=== PATIENT | female | born 1965 | race Caucasian/White ===

== ENCOUNTER 2016-04-29 09:08 | Emergency (ER) | payer BC ==
[~2016-04-29] VITALS: Ht 160 cm; Wt 62.7 kg
[~2016-04-29 09:08] MED LIST: FERR1TAB23 PO; MISCTAB PO; MULT-506 PO
[2016-04-29 09:16] VITALS: TEMP 36.6; Ht 160 cm; Wt 62.7 kg
[2016-04-29] MEDS ORDERED: PROMETHAZINE HCL INJ 25 MG/ML 1 ML VIAL IM STA (09:34)
[2016-04-29] MEDS ORDERED: HYDROmorphone INJ 1 MG/ML SYR IM STA (09:34)
[2016-04-29] MEDS ORDERED: KETOROLAC TROMETHAMINE 60 MG/2 ML VIAL IM STA (09:34)
[2016-04-29 10:45] VITALS: BP 101/78; PULSE 76; O2SAT 98
--- NOTE | 2016-04-30 12:26 | EMERGENCY ROOM VISIT NOTE ---
ED Visit Note First contact with patient: 09:21 CHIEF COMPLAINT: Migraine headache. HISTORY OF PRESENT ILLNESS: Ms. Canales is a 51 year-old white female who ambulates into the ED complaining of a migraine headache. She reports a gradual onset of a severe migraine headache that started approximately 28 hours ago. The pain is constant and it is slowly increasing in severity. This is not the worst headache of the life and is similar to previous migraines. Currently she describes the headache as a pressure sensation/pain in the left temporoparietal area. He/She rates the pain a 7/10. The pain is nonradiating. She reports taking her prescribed naproxen without relief of pain. She reports bright lights and loud sounds worsen her headache. She has not identified any alleviating factors related to the discomfort. She denies any associated fevers, chills, sweats, skin eruptions, skin color changes, recent head or dental trauma, visual changes, hearing changes, difficulty speaking, difficulty swallowing, difficulty ambulating/coordinating body movements, upper respiratory tract symptoms, neck pain/stiffness, shortness of breath, abdominal pain, extremity weakness/numbness/tingling. REVIEW OF SYSTEMS: As noted above in History of Present Illness; all body systems were reviewed with the patient and found to be negative unless noted above otherwise PAST MEDICAL HISTORY: (1) Depressive Disorder Nec (2) Headache (3) Migraine Surgical Problems: (1) History of - tubal ligation (2) Partial hysterectomy (3) Sinus Plasty CURRENT MEDICATIONS: Medications Dose Route/Sig Max Daily Dose Days Date Category Buspirone Hcl 5 Mg Tab 1 Tab PO TID 30 04/29/16 Reported Naprosyn Ds (Naproxen Sodium) 550 Mg Tab 550 Mg PO BID PRN 11/05/15 Reported Depakote Er (Divalproex Sodium) 250 Mg Tab 250 Mg PO HS 30 11/05/15 Reported Tylenol (Acetaminophen) 500 Mg Tab 1,000 Mg PO DIRECTED 08/14/15 Reported Sertraline HCl 100 Mg Tab 150 Mg PO DAILY 04/05/14 Reported ALLERGIES TO MEDICATIONS: Patient denies. SOCIAL HISTORY: Patient is currently employed; she feels safe in her home environment; she denies tobacco and alcohol use. PHYSICAL EXAM: Vital Signs: Date Time Temp Pulse Resp B/P Pulse Ox O2 Delivery O2 Flow Rate FiO2 04/29/16 10:45 76 16 101/78 98 04/29/16 09:16 36.6 70 18 118/80 100 Room Air GENERAL: 51 year-old white female in moderate distress due to pain, afebrile and hemodynamically stable. NEUROLOGIC: Awake, alert and oriented to person place and time. Answering questions appropriately and following commands. Cranial nerves II-XII grossly intact. Good short-term and long-term recall. No focal neurologic deficits noted. SKIN: Warm, dry and pink. No rashes, lesions or soft tissue trauma noted. HEENT: Normocephalic, atraumatic. Pupils equal, round and reactive. Extraocular movements intact and there is no nystagmus. Sclera anicteric. Ears , nose and oropharynx clear. The patient is photophobic, precluding funduscopic examination. NECK: Soft and supple. No tenderness through the central cervical region or cervical musculature. Negative Kernigs and negative Brudzinski signs. No lymphadenopathy, jugular venous distention, or bruits noted. THORAX: Lungs clear to auscultation and equal bilaterally with no wheezing, crackles, rhonchi or stridor and equal chest wall movements. HEART: Regular rate and rhythm with no murmurs, rubs or gallops. ABDOMEN: Soft and nontender with bowel sounds present in all quadrants; no rigidity, rebound tenderness, organomegaly or guarding. MUSCULOSKELETAL: Full range of motion of all joints without any significant discomfort and the gait is normal. ED COURSE: Patient is assessed with history and physical examination. Patient was given 2 mg of the Dilaudid IM, 60 mg of Toradol IM and 25 mg of Phenergan IM for her pain and nausea. Patient was reassessed. Patient was educated about her condition and instructed on her treatment plan; she verbalized understanding and agreement with this plan. CLINICAL IMPRESSION: Migraine headache. DECISION MAKIN-year-old female who presents for evaluation of headache. She is afebrile, well appearing, and hemodynamically stable. She has no signs of a sinus, dental , or ear infection and no evidence of meningismus. She is neurologically intact. I do not suspect a headache to be secondary to a subarachnoid hemorrhage, meningitis, encephalitis, or intracranial mass lesion. DISPOSITION: Patient was discharged to home in stable condition accompanied by her ; prior to departure she was reassessed and subjectively reported she was feeling better and rated her discomfort 3.5/10. DISCHARGE INSTRUCTIONS: Rest at home, in a quiet darkened room and allow the medication to work for the pain. Continue to follow up current treatment plan prescribed by your physician for your migraine headaches. See your own doctor in follow-up this week for continued care and treatment. Return to the emergency department as needed for worsening/uncontrolled pain, any abnormal neurological symptoms, fevers or any new/concerning symptoms.
[2016-10-02] MEDS ORDERED: ZLF/100 PO (07:14)
[2016-10-02] MEDS ORDERED: NAPR550T PO (09:14)
[2016-10-02] MEDS ORDERED: DIVA250T PO (09:14)
[2016-10-02] MEDS ORDERED: BUSP5TAB59 PO (09:46)
[2016-10-02] MEDS ORDERED: ACET-1256 PO (12:45)
== END 2016-04-29 10:55 | disposition home or self-care (01) ==
LOC: C.EDB 09:09
DX: G43.909 Migraine, unspecified, not intractable, without status migrainosus (principal); F32.9 Major depressive disorder, single episode, unspecified; Z79.899 Other long term (current) drug therapy

== ENCOUNTER 2016-05-19 09:53 | Emergency (ER) | payer BC ==
[~2016-05-19] VITALS: Ht 160 cm; Wt 63.1 kg
[2016-05-19 10:01] VITALS: TEMP 36.9; Ht 160 cm; Wt 63.1 kg
[2016-05-19] MEDS ORDERED: PROMETHAZINE HCL INJ 25 MG/ML 1 ML VIAL IM STA (10:49)
[2016-05-19] MEDS ORDERED: KETOROLAC TROMETHAMINE 60 MG/2 ML VIAL IM STA (10:49)
[2016-05-19] MEDS ORDERED: AMOX500C3 PO (10:55)
[2016-05-19] MEDS ORDERED: HYDROmorphone INJ 1 MG/ML SYR IM ONE (11:00)
[2016-05-19 11:26] VITALS: BP 124/88; PULSE 76; O2SAT 98
--- NOTE | 2016-05-20 07:44 | EMERGENCY ROOM VISIT NOTE ---
ED Visit Note First contact with patient: 10:29 CHIEF COMPLAINT: Migraine headache. Sinus congestion. HISTORY OF PRESENT ILLNESS: This 51-year-old white female complains of gradual onset of a severe generalized headache that started 2 days ago. She also complains of sinus congestion that she has had for the last 8 days. She states it is getting worse. She feels a triggered her migraine. There has been associated nausea but no vomiting. The patient denies fever or chills recently. No respiratory symptoms. There is no weakness or numbness of the extremities. There is no difficulty with speech, hearing, or vision. No trauma to the head and no neck pain. The pain is severe, constant, and has been slowly increasing in severity. She is photophobic but not phonophobic. This is not the worst headache of her life and is similar to previous migraines. Pain is 8/10. Patient is well known to the ED for frequent migraine headaches. She has not seen her PCP. REVIEW OF SYSTEMS: Ears: No pain or change in hearing. Neck: No pain, stiffness, or swelling. Neurological: No changes in mental status, vertigo, focal weakness, numbness. Cardiac: No chest pain, diaphoresis, dyspnea on exertion, orthopnea, pedal edema, or palpitations. Respiratory: No cough, change in sputum, wheezes, hemoptysis, shortness of breath, or stridor. Gastrointestinal: No abdominal pain, blood in stools, diarrhea, or loss of appetite. Skin: No rash, new lesions, or masses. General: No fever or chills , fatigue, loss of appetite, or significant recent weight gain or loss. PMH: Supplemental sheet was reviewed. Previous surgeries: Sinus surgery, hysterectomy, and tubal ligation Medical history: Significant for migraine headaches, depression Family history: Noncontributory SOCIAL HISTORY: Employed. No tobacco use Allergies: NKDA Current Medications: Reviewed and filed in patient's chart PHYSICAL EXAM: Vital Signs: Afebrile. Reviewed and filed in patient's chart MENTAL STATUS: Alert, oriented, and coherent. In obvious discomfort from the headache. No acute distress. Skin:Warm and dry with good turgor. No rashes or lesions. No ecchymosis or erythema. The patient is not diaphoretic. No abrasions. HEENT:Normocephalic atraumatic. Eyes PERRLA, EOMI. No conjunctiva or scleral injection. She has are light sensitive. Ears TMs intact bilaterally with good light reflexes. No erythema or bulging. No hemotympanum. Canals are patent. Nares patent bilaterally with bilateral turbinate enlargement. White nasal drainage. Oropharynx without erythema or exudate. Uvula midline, oral mucosa moist. No lesions present. Visible postnasal drip. Lymphatics are palpated without anterior or posterior chain enlargement or tenderness. NECK: Supple, nontender, no nuchal rigidity. HEART : Regular rhythm and normal rate without murmurs, ectopy, gallops, or rubs. Peripheral pulses are 2+. LUNGS: Lungs are clear to auscultation. No crackles rhonchi or wheezing. Good air movement. The patient is able to take a deep breath. Abdomen: Bowel sounds present x4. Soft, nontender to palpation. No organomegaly. No masses noted. NEUROLOGIC: The patient moves all extremities well and the gait is normal. Cranial nerves 2 through 12 are intact. Gross sensation is intact across the upper and lower extremities via soft touch. EMERGENCY DEPARTMENT COURSE: The patient was educated regarding today's findings. Conservative care measures were discussed. The patient was given Dilaudid 1 mg IM, Phenergan 25 mg IM, and Toradol 60 mg IM for the headache with some relief of the pain and nausea. This is her usual regimen. I do not suspect intracranial bleed, encephalitis, or meningitis. DIAGNOSIS: Migraine headache. Acute sinusitis DISCHARGE INSTRUCTIONS & TREATMENT: Patient was given Dilaudid, Phenergan, and Toradol for nausea and pain control. Rest at home in a quiet, dark room. Driving precautions were reviewed. Take her usual medication for any breakthrough pain. She was also prescribed amoxicillin 500 mg 3 times a day 10 days for sinus infection. She may use a decongestant such as Mucinex D. Rest as needed. See your own doctor in follow-up. Maintain hydration. Return to the ER for any acute changes in mental status. Migraine headache handout was provided. Problem List Medical Problems: (1) Depressive Disorder Nec Status: Chronic (2) Headache Status: Resolved (3) Migraine Status: Chronic Surgical Problems: (1) History of - tubal ligation Status: Resolved (2) Partial hysterectomy Status: Resolved (3) Sinus Plasty Status: Resolved Current/Historical Medications Scheduled Acetaminophen (Tylenol), 1,000 MG PO DIRECTED Amoxicillin (Amoxil), 500 MG PO TID Buspirone Hcl (Buspirone Hcl), 1 TAB PO TID Divalproex Sodium (Depakote Er), 250 MG PO HS Sertraline HCl (Sertraline HCl), 200 MG PO DAILY Scheduled PRN Naproxen Sodium (Naprosyn Ds), 550 MG PO BID PRN for Pain Allergies Coded Allergies: No Known Allergies (Unverified , 05/19/16) Vital Signs Date Time Temp Pulse Resp B/P Pulse Ox O2 Delivery O2 Flow Rate FiO2 05/19/16 11:26 76 18 124/88 98 05/19/16 10:01 36.9 77 18 123/86 97 Room Air Medications Administered Medications (Trade) Dose Ordered Sig/Jasmyn Route Start Time Stop Time Status Last Admin Dose Admin Hydromorphone HCl (Dilaudid Inj) 1 mg NOW ONCE IM 05/19/16 11:00 05/19/16 11:01 DC 05/19/16 11:03 1 MG Promethazine HCl (Phenergan Inj) 25 mg NOW STAT IM 05/19/16 10:49 05/19/16 10:51 DC 05/19/16 10:49 25 MG Ketorolac Tromethamine (Toradol Inj) 60 mg NOW STAT IM 05/19/16 10:49 05/19/16 10:51 DC 05/19/16 10:49 60 MG Departure Information Impression Primary Impression: Sinusitis, acute Additional Impression: Migraine Dispostion Home / Self-Care Condition GOOD Prescriptions Amoxicillin (AMOXIL) 500 Mg Cap 500 MG PO TID, #30 CAP Prov: Ino Boo,P.A. 05/19/16 Forms HOME CARE DOCUMENTATION FORM, COOL MIST HUMIDIFIER, MOTRIN USE, TYLENOL USE, IMPORTANT VISIT INFORMATION Patient Instructions Sinusitis Acute, [facility] Additional Instructions Tylenol and Motrin every 6 hours as needed for discomfort Mucinex D daily until symptoms resolve Maintain hydration Amoxil 1 pill 3 times a day 10 days Follow-up with your PCP as needed Cool mist humidifier may improve your symptoms Problem Qualifiers
[2016-10-02] MEDS ORDERED: ZLF/100 PO (07:14)
[2016-10-02] MEDS ORDERED: DIVA250T PO (09:14)
[2016-10-02] MEDS ORDERED: NAPR550T PO (09:14)
[2016-10-02] MEDS ORDERED: BUSP5TAB59 PO (09:46)
[2016-10-02] MEDS ORDERED: ACET-1256 PO (12:45)
== END 2016-05-19 11:27 | disposition home or self-care (01) ==
LOC: C.EDB 09:54 → C.EDA 11:27
DX: G43.909 Migraine, unspecified, not intractable, without status migrainosus (principal); J01.90 Acute sinusitis, unspecified; F32.9 Major depressive disorder, single episode, unspecified; Z79.899 Other long term (current) drug therapy

== ENCOUNTER → 2016-06-23 | Outpatient (CLI) | payer BC ==
[~2016-06-23] MED LIST changes: +ACET-1256 PO; +BUSP5TAB59 PO; +DIVA250T PO; -FERR1TAB23 PO; +IMT100 PO; -MISCTAB PO; -MULT-506 PO; +NAPR550T PO; +ZLF/100 PO
[2016-06-23 13:43] LABS: BLOOD UREA NITROGEN 11 mg/dl (7-18); BUN/CREATININE RATIO 16.3 (10-20); CARBON DIOXIDE 30 mmol/L (21-32); CHLORIDE 106 mmol/L (98-107); CREATININE 0.69 mg/dl (0.60-1.20); GLUCOSE 82 mg/dl (70-99); SODIUM 141 mmol/L (136-145)
[2016-06-23 13:53] LABS: CHOLESTEROL 215 mg/dl (0-200); CHOLESTEROL/HDL RATIO 3.4; HDL CHOLESTEROL 63 mg/dl; LDL CHOLESTEROL CALCULATED 135 mg/dl; THYROID STIMULATING HORMONE 0.429 uIu/ml (0.300-4.500); TRIGLYCERIDES 87 mg/dl (0-150); VERY LOW DENSITY LIPOPROT CALC 17 mg/dl
--- NOTE | 2016-06-27 13:03 | CODING QUERY MEDICAL NECESSITY ---
SUPPORTING DIAGNOSIS NEEDED A supporting diagnosis is required for the test/procedure performed on this patient in order for us to be reimbursed by the patient's insurance. Please provide a supporting diagnosis for the following test/procedure listed below next to the test name along with your signature. *If there is no additional diagnosis for this patient that would support the following test/procedure please document that below next to the test/procedure. Test(s)/Procedure(s) that require a supporting diagnosis: DOS 25 * Vitamin D DIAGNOSIS: * Lipids DIAGNOSIS: Provider Signature: Date: Thank you Gail Thomas Health Information Management Once completed, please kindly fax back to [phone] For questions please call [phone]
== END | disposition home or self-care (01) ==
LOC: C.LABPVFM 09:23
PROVIDERS: ATTEND Nurse Practitioner
DX: F41.8 Other specified anxiety disorders (principal); R53.83 Other fatigue; Z13.220 Encounter for screening for lipoid disorders; Z13.1 Encounter for screening for diabetes mellitus; E55.9 Vitamin D deficiency, unspecified

== ENCOUNTER 2016-10-02 15:42 | Emergency (ER) | payer BC ==
[~2016-10-02] VITALS: Ht 160 cm; Wt 62.9 kg
[~2016-10-02 15:42] MED LIST changes: -IMT100 PO
[2016-10-02 15:44] VITALS: BP 119/81; PULSE 64; TEMP 37; O2SAT 100; Ht 160 cm; Wt 62.9 kg
[2016-10-02] MEDS ORDERED: PROMETHAZINE HCL INJ 25 MG/ML 1 ML VIAL IM STA (16:04)
[2016-10-02] MEDS ORDERED: IMT100 PO (16:10)
--- NOTE | 2016-10-02 16:10 | EMERGENCY ROOM VISIT NOTE ---
History First contact with patient: 15:52 Chief Complaint: HEADACHE Stated Complaint: MIRGRAINE History of Present Illness The patient is a 51 year old female who presents to the Emergency Room with complaints of a migraine headache that started yesterday. The patient describes as a throbbing sensation diffusely across her head. This is not the worst headache of her life. This feels like her typical migraine. She denies any visual disturbances. She denies any neck pain, fever or chills. The patient tried her Imitrex with no relief at home. She also reports nausea and several episodes of vomiting this morning. She denies any abdominal pain or diarrhea. Review of Systems 10 system review performed and negative unless noted in HPI or below Past Medical/Surgical History Medical Problems: (1) Depressive Disorder Nec (2) Headache (3) Migraine Surgical Problems: (1) History of - tubal ligation (2) Partial hysterectomy (3) Sinus Plasty Family History Cancer Diabetes mellitus Hypertension Social History Smoking Status: Never Smoker Alcohol Use: none Drug Use: none Marital Status: Housing Status: lives with family, lives with significant other Occupation Status: employed Current/Historical Medications Scheduled Buspirone Hcl (Buspirone Hcl), 1 TAB PO TID Divalproex Sodium (Depakote Er), 250 MG PO HS Sertraline HCl (Sertraline HCl), 100 MG PO BID Sumatriptan Succinate (Imitrex), 100 MG PO PRN UD Scheduled PRN Acetaminophen (Tylenol), 1,000 MG PO Q6 PRN for Pain or Fever Naproxen Sodium (Naprosyn Ds), 550 MG PO BID PRN for Pain Allergies Coded Allergies: No Known Allergies (Unverified , 10/02/16) Physical Exam Vital Signs Date Time Temp Pulse Resp B/P (MAP) Pulse Ox O2 Delivery O2 Flow Rate FiO2 10/02/16 15:44 37.0 64 18 119/81 100 Room Air Physical Exam VITALS: Vitals are noted on the nurse's note and reviewed by myself. Vital signs stable. GENERAL: 51-year-old female, nontoxic in appearance, SKIN: The skin was without rashes, erythema, edema, or bruising. HEAD: Normocephalic atraumatic. EYES: Pupils equal round and reactive to light and accommodation. Conjunctivae without injection, sclerae without icterus. Extraocular movements intact. MOUTH: Mucous membranes moist. Tonsils are not enlarged. Pharynx without erythema or exudate. Uvula midline. Airway patent. Tongue does not deviate. NECK: Supple without nuchal rigidity. No lymphadenopathy. Cervical spine is nontender. No JVD. HEART: Regular rate and rhythm without murmurs gallops or rubs. LUNGS: Clear to auscultation bilaterally without wheezes, rales or rhonchi. No accessory muscle use. ABDOMEN: Positive bowel sounds x 4.Soft, nontender, without organomegaly. No guarding or rebound tenderness. MUSCULOSKELETAL: No muscle atrophy, erythema, or edema noted. Full range of motion in all extremities. No tenderness to palpation. Normal gait. Strength 5/5 throughout. NEURO: Patient was alert and oriented to person place and time. Cerebellar function intact. Normal sensation to touch. No focal neurological deficits. Medical Decision & Procedures Medications Administered Medications (Trade) Dose Ordered Sig/Jasmyn Route Start Time Stop Time Status Last Admin Dose Admin Hydromorphone HCl (Dilaudid Inj) 2 mg ONE ONCE IM 10/02/16 16:15 10/02/16 16:16 DC 10/02/16 16:18 2 MG Ketorolac Tromethamine (Toradol Inj) 60 mg ONE ONCE IM 10/02/16 16:15 10/02/16 16:16 DC 10/02/16 16:17 60 MG Promethazine HCl (Phenergan Inj) 25 mg NOW STAT IM 10/02/16 16:04 10/02/16 16:06 DC 10/02/16 16:17 25 MG ED Course the patient was seen and examined Past medical records were reviewed She was given Dilaudid 2 mg, Toradol 60 mg and Phenergan 25 mg IM Upon reevaluation, the patient was feeling much better The patient was discharged after discharge and structures were reviewed in good condition with a racing driver. Medical Decision Differential includes: Acute intracranial bleed, trauma, meningitis, encephalitis, increased intracranial pressure, mass or mass effect, facial or dental infection, temporal arteritis, CVA, TIA, acute hypertensive emergency, sinusitis, carbon monoxide exposure. This patient is a 51-year-old female that presented with her typical migraine headache symptoms. She is nontoxic in appearance. Her vitals are stable. No recent illnesses. She is afebrile. Her symptoms are migrainous in nature. I did not find any laboratory studies or imaging necessary. She was given pain medications with good pain relief, and discharged home in good condition with a racing driver. This chart was completed in part utilizing [employer] Speech Voice Recognition software. Attempts were made to minimize the grammatical errors, random word insertions, pronoun errors and incomplete sentences. Any formal questions or concerns about the content, text or information contained within the body of this dictation should be directly addressed to the provider for clarification. Impression Primary Impression: Migraine Departure Information Referrals Enid Marquez, WanN.P (PCP) Patient Instructions [facility]
[2016-10-02] MEDS ORDERED: KETOROLAC TROMETHAMINE 60 MG/2 ML VIAL IM ONE (16:15)
[2016-10-02] MEDS ORDERED: HYDROmorphone INJ 2 MG/ML SYR/VIAL IM ONE (16:15)
== END 2016-10-02 17:01 | disposition home or self-care (01) ==
LOC: C.EDB 15:43 → C.EDD 17:01
DX: G43.909 Migraine, unspecified, not intractable, without status migrainosus (principal); Z83.3 Family history of diabetes mellitus; Z82.49 Family history of ischemic heart disease and other diseases of the circulatory system

== ENCOUNTER → 2017-04-17 | Outpatient (CLI) | payer OTHER ==
[~2017-04-17] MED LIST changes: +IMT100 PO
--- NOTE | 2017-04-17 15:09 | MAMMOGRAPHY REPORT ---
BILATERAL DIGITAL SCREENING MAMMOGRAM TOMOSYNTHESIS WITH CAD: 04/17/2017 TECHNIQUE: Breast tomosynthesis in addition to standard 2D mammography was performed. Current study was also evaluated with a Computer Aided Detection (CAD) system. COMPARISON: Comparison is made to exams dated: 02/15/2016 mammogram, 02/09/2015 mammogram, 06/18/2013 ultrasound, 09/26/2012 mammogram, 09/26/2012 ultrasound, and 09/19/2012 mammogram - [facility]. BREAST COMPOSITION: The tissue of both breasts is heterogeneously dense, which may obscure small mas ses. FINDINGS: No suspicious masses, calcifications, or areas of architectural distortion are noted in ei ther breast. There has been no significant interval change compared to prior exams. IMPRESSION: ACR BI-RADS CATEGORY 1: NEGATIVE There is no mammographic evidence of malignancy. A 1 year screening mammogram is recommended. The pa tient will receive written notification of the results. Approximately 10% of breast cancers are not detected with mammography. A negative mammographic report should not delay biopsy if a clinically suggestive mass is present. Magui Glover M.D. /:04/17/2017 10:10:33 Political Science Research Assistant: Ashlee GALVAN(Vin)(Isabel), [facility] letter sent: Normal 1/2 BI-RADS Code: ACR BI-RADS Category 1: Negative
== END | disposition home or self-care (01) ==
LOC: C.MAMM 09:48
PROVIDERS: ATTEND Nurse Practitioner
DX: Z01.419 Encounter for gynecological examination (general) (routine) without abnormal findings (principal)

== ENCOUNTER 2017-11-03 20:49 | Emergency (ER) | payer OTHER ==
[~2017-11-03] VITALS: Ht 160 cm; Wt 65.4 kg
[~2017-11-03 20:49] MED LIST changes: -NAPR550T PO; +[UNRECOGNIZED DRUG - CODE] PO
[2017-11-03 20:55] VITALS: TEMP 36.9; Ht 160 cm; Wt 65.4 kg
[2017-11-03] MEDS ORDERED: KETOROLAC TROMETHAMINE 60 MG/2 ML VIAL IM STA (21:04)
[2017-11-03] MEDS ORDERED: PROMETHAZINE HCL INJ 25 MG/ML 1 ML VIAL IM STA (21:04)
[2017-11-03 22:17] VITALS: BP 141/81; PULSE 65; O2SAT 95
--- NOTE | 2017-11-03 22:56 | EMERGENCY ROOM VISIT NOTE ---
History Report prepared by Carlee: Lashaun Quinonez Under the Supervision of: Dr. Jaime Alvarado D.O. 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 She notes this is consistent with her past migraines and this episode came on gradually and her pain has worsened. The patient states that hot and humid weather worsens her migraines and she rates it as a 7/10 in severity. Pt has associated vomiting that is not self-induced but denies any change in vision, fevers, chest pain, shortness of breath, nausea, diarrhea, pain with urination, and melena. She typically takes sumatriptan to control her migraines but states she did not get to it fast enough. Light and sound does bother her headache as well. No fevers or stiff neck. 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 A total of 10 systems reviewed and were otherwise negative. Past Medical & Surgical Medical Problems: (1) Depressive Disorder Nec (2) Headache (3) Migraine Surgical Problems: (1) History of - tubal ligation (2) Partial hysterectomy (3) Sinus Plasty Family History Cancer Diabetes mellitus Hypertension Social History Smoking Status: Never Smoker Alcohol Use: none Drug Use: none Marital Status: Housing Status: lives with family, lives with significant other Occupation Status: employed Current/Historical Medications Scheduled Buspirone Hcl (Buspirone Hcl), 1 TAB PO TID Divalproex Sodium (Depakote Er), 250 MG PO HS Sertraline HCl (Sertraline HCl), 100 MG PO BID Sumatriptan Succinate (Imitrex), 100 MG PO PRN UD Scheduled PRN Acetaminophen (Tylenol), 1,000 MG PO Q6 PRN for Pain or Fever Naproxen Sodium (Naprosyn Ds), 550 MG PO BID PRN for Pain Allergies Coded Allergies: No Known Allergies (Unverified , 09/16/17) Physical Exam Vital Signs Date Time Temp Pulse Resp B/P (MAP) Pulse Ox O2 Delivery O2 Flow Rate FiO2 11/03/17 22:17 65 20 141/81 95 Room Air 11/03/17 20:55 36.9 66 18 144/88 98 Room Air Physical Exam GENERAL: Standing in room, alert, well appearing, well nourished, no distress, non-toxic EYE EXAM: normal conjunctiva. PERRL and EOM's intact. OROPHARYNX: no exudate, no erythema, lips, buccal mucosa, and tongue normal and mucous membranes are moist NECK: supple, no nuchal rigidity, no adenopathy, non-tender LUNGS: Clear to auscultation. Normal chest wall mechanics HEART: no murmurs, S1 normal and S2 normal ABDOMEN: abdomen soft, non-tender, normo-active bowel sounds, no masses, no rebound or guarding. BACK: Back is symmetrical on inspection and there is no deformity, no midline tenderness, no CVA tenderness. SKIN: no rashes and no bruising UPPER EXTREMITIES: upper extremities are grossly normal. LOWER EXTREMITIES: No pitting edema. NEURO EXAM: Normal sensorium, cranial nerves II-XII intact, normal speech, no weakness of arms, no weakness of legs. No drift. Finger to nose intact. Gross sensation intact. Ambulates without difficulty. Medical Decision & Procedures Medications Administered Medications (Trade) Dose Ordered Sig/Jasmyn Route Start Time Stop Time Status Last Admin Dose Admin Ketorolac Tromethamine (Toradol Inj) 60 mg NOW STAT IM 11/03/17 21:04 11/03/17 21:05 DC 11/03/17 21:35 60 MG Promethazine HCl (Phenergan Inj) 25 mg NOW STAT IM 11/03/17 21:04 11/03/17 21:05 DC 11/03/17 21:35 25 MG ED Course ED COURSE: Vital signs were reviewed and showed HTN situationally The patients medical record was reviewed The above diagnostic studies were performed and reviewed. ED treatments and interventions as stated above. 2100: The patient was evaluated in room D7. A complete history and physical examination was performed. 2103: Ordered Phenergan Inj 25 mg IM, Toradol Inj 60 mcg IM 2144: Upon reevaluation, the patient is feeling better. I discussed my findings with the patient and she understands and agrees with the treatment plan. Based on the patients age, coexisting illnesses, exam and lab findings the decision to treat as an outpatient was made. The patient remained stable while under my care. The patient appeared well at the time of discharge. Medical Decision Differential Diagnosis includes but is not limited to headache, tension headache , cluster headache, migraine, subarachnoid hemorrhage, meningitis, mass, central venous thrombus, concussion, trauma and epidural/subdural hemorrhage. Patient is a 52-year-old female who presents the ER for headache. She notes that this is consistent with her previous migraines. It is unchanged in any way. She does have nausea and vomiting which is consistent as well. No weakness or numbness in her arms or legs. No neck pain. No fevers. On exam there is no signs of meningitis or encephalitis. She is completely neurologically intact. She was given IM Toradol and Phenergan. She had near complete resolution of her symptoms. She was discharged to follow-up with PCP as an outpatient. Discussed with Pt concerning signs and symptoms to watch out for. Pt was instructed to follow up with their PCP and discussed with the patient their option to return to the ED at anytime for persistent or worsening symptoms. The appropriate anticipatory guidance and out-patient management, including indications for return to the emergency department, were explained at length to the patient and understood. Medication Reconcilliation Current Medication List: was personally reviewed by me Blood Pressure Screening Patient's blood pressure: Elevated blood pressure Blood pressure disposition: Elevated BP felt to be situational Impression Primary Impression: Cephalgia Scribe Attestation The scribe's documentation has been prepared under my direction and personally reviewed by me in its entirety. I confirm that the note above accurately reflects all work, treatment, procedures, and medical decision making performed by me. Departure Information Dispostion Home / Self-Care Referrals Enid Marquez C.R.N.P (PCP) Forms HOME CARE DOCUMENTATION FORM, IMPORTANT VISIT INFORMATION, WORK / SCHOOL INSTRUCTIONS Patient Instructions [facility] Additional Instructions Please follow up with your primary care doctor with in the next 24 hours. Any worsening of your symptoms, please return to the ED immediately. This includes any fevers greater than 100.4, worsening pain, chest pain, shortness breath, persistent nausea, vomiting, unable to eat or drink, weakness in her arms legs, confusion, stiff neck, or any other concerning signs or symptoms from your standpoint. You were given medications during this visit that will inhibit your ability to drive, operate machinery and work. Please do NOT drive, operate machinery, drink alcohol or work for the next 12hrs. Problem Qualifiers Primary Impression: Cephalgia Headache type: unspecified Headache chronicity pattern: acute headache Intractability: not intractable Qualified Codes: R51 - Headache
== END 2017-11-03 22:29 | disposition home or self-care (01) ==
LOC: C.EDB 20:50 → C.EDD 22:29
DX: R51 Headache (principal); F32.9 Major depressive disorder, single episode, unspecified